=== PATIENT | female | born 1960 | race Caucasian/White ===

== ENCOUNTER 2016-02-16 17:23 | Inpatient (IN) | payer MEDICARE, MEDICAID ==
[~2016-02-16] VITALS: Ht 182.9 cm; Wt 85.0 kg
[~2016-02-16 17:23] MED LIST: ALBU18 IN; ALPR0.5T7 OR; CARI-277 OR; DIA2T PO; FLUT230A2 IN; HYDR7.5T OR; LEV100T PO; LEVO-28 PO; TOPI200T37 OR; VYTORIN; ZOLP10TA OR; [UNRECOGNIZED DRUG - OTHER]
[2016-02-16] MEDS ORDERED: LORazepam 2MG/ML-1ML VIAL ONE (18:19)
[2016-02-16] MEDS ORDERED: LORazepam 2MG/ML-1ML VIAL IV ONE (18:30)
[2016-02-16] MEDS ORDERED: LEVETIRACETAM INJ 1,000 MG in SODIUM CHL 0.9% 100 ML IV ONE (19:00)
[2016-02-16 19:47] LABS: Basophils # (auto) 0.1 uL; Basophils % (auto) 0.6 % (0.0-2.0); Eosinophils # (auto) 0.1 uL; Eosinophils % (auto) 0.6 % (0.0-7.0); Hematocrit 47.5 % (36.0-46.0); Hemoglobin 15.6 g/dL (12.2-16.2); Lymphocytes # (auto) 1.2 uL; Lymphocytes % (auto) 9.6 % (10.0-50.0); Mean Corpuscular Hemoglobin 29.3 pg (28.0-32.0); Mean Corpuscular Hgb Conc. 32.8 g/dL (32.0-36.0); Mean Corpuscular Volume 89.3 fL (80.0-100.0); Mean Platelet Volume 8.1 fL (7.4-10.4); Monocytes # (auto) 0.7 uL; Monocytes % (auto) 5.4 % (0.0-12.0); Neutrophils # (auto) 10.7 uL; Neutrophils % (auto) 83.8 % (37.0-80.0); Platelet Count (auto) 228 10^3/uL (140-450); White Blood Cell 12.8 10^3/uL (4.4-10.8)
[2016-02-16 20:03] LABS: Albumin 3.9 g/dL (3.4-5.0); Alkaline Phosphatase 95 U/L (45-117); Anion Gap 13 (5-15); Aspartate Aminotransferase 14 U/L (15-37); BUN/Creatinine Ratio 11.6; Bilirubin, Total 0.3 mg/dL (0.2-1.0); Blood Urea Nitrogen 15 mg/dL (7-18); Calcium 9.2 mg/dL (8.5-10.1); Carbon Dioxide 19 mmol/L (21-32); Chloride 110 mmol/L (98-107); GFR African American 55 mL/min; GFR Non-African American 46 mL/min; Glucose 126 mg/dL (74-106); Magnesium 2.7 mg/dL (1.6-2.6); Potassium 3.9 mmol/L (3.5-5.1); Sodium 142 mmol/L (136-145); Total Protein 7.4 g/dL (6.4-8.2)
[2016-02-16] MEDS ORDERED: LORazepam 2MG/ML-1ML VIAL IV PRN (22:15)
[2016-02-16] MEDS ORDERED: ALBUTEROL SULF 2.5 MG/0.5ML(0.5%) NEB SOLN NEB PRN (22:15)
[2016-02-16] MEDS ORDERED: NITROGLYCERIN 0.4 MG SL TAB SL PRN (22:15)
[2016-02-16] MEDS ORDERED: ALPRAZolam 0.5 MG TAB PO PRN (22:15)
[2016-02-16] MEDS ORDERED: ACETAMINOPHEN 325 MG TAB PO PRN (22:15)
[2016-02-16] MEDS ORDERED: ONDANSETRON HCL 4 MG/2 ML VIAL IV PRN (22:15)
[2016-02-16] MEDS: SODIUM CHLORIDE 0.9% 1,000 ML IV SCH (22:36)
[2016-02-17 03:53] LABS: Basophils # (auto) 0 uL; Basophils % (auto) 0.4 % (0.0-2.0); Eosinophils # (auto) 0.1 uL; Eosinophils % (auto) 0.7 % (0.0-7.0); Hematocrit 44.1 % (36.0-46.0); Hemoglobin 14.4 g/dL (12.2-16.2); Lymphocytes # (auto) 2.5 uL; Lymphocytes % (auto) 23.5 % (10.0-50.0); Mean Corpuscular Hgb Conc. 32.8 g/dL (32.0-36.0); Mean Corpuscular Volume 88.5 fL (80.0-100.0); Mean Platelet Volume 7.7 fL (7.4-10.4); Monocytes # (auto) 0.8 uL; Monocytes % (auto) 7.4 % (0.0-12.0); Neutrophils # (auto) 7.3 uL; Platelet Count (auto) 216 10^3/uL (140-450); Red Cell Distribution Width 16.1 % (11.6-16.0); White Blood Cell 10.7 10^3/uL (4.4-10.8)
[2016-02-17 04:06] VITALS: BP 129/90
[2016-02-17 04:12] LABS: Albumin 3.5 g/dL (3.4-5.0); BUN/Creatinine Ratio 13.4; Calcium 8.4 mg/dL (8.5-10.1); Potassium 3.4 mmol/L (3.5-5.1)
[2016-02-17] MEDS: OXYCODONE W/ ACETAMINOPHEN 5/325MG TABLET PO PRN ×3 (04:14→20:42)
[2016-02-17 04:15] LABS: Bilirubin, Total 0.4 mg/dL (0.2-1.0); Total Protein 6.7 g/dL (6.4-8.2)
[2016-02-17] MEDS: LEVETIRACETAM 500 MG TAB PO SCH ×2 (09:05→22:24)
[2016-02-17] MEDS: LEVOTHYROXINE SODIUM 50 MCG TAB PO SCH (09:05)
[2016-02-17] MEDS: TOPIRAMATE 100 MG TAB PO SCH ×2 (09:05→22:24)
[2016-02-17] MEDS: FAMOTIDINE 20 MG TAB PO SCH ×2 (09:05→22:24)
[2016-02-17] MEDS: ENOXAPARIN SOD 40 MG/0.4 ML SYRINGE SC SCH (09:06)
[2016-02-17] MEDS: DIAZEPAM 2 MG TAB PO SCH (09:06)
[2016-02-17] MEDS ORDERED: AMIT25TA9 PO (10:15)
[2016-02-17] MEDS: SODIUM CHLORIDE 0.9% 1,000 ML IV SCH (14:47)
[2016-02-17] MEDS ORDERED: POTASSIUM CHL 20 Meq TABLET PO ONE (16:15)
[2016-02-17] MEDS ORDERED: AMITRIPTYLINE HCL 25 MG TAB PO SCH (22:00)
[2016-02-17 22:02] VITALS: BP 100/60
[2016-02-18 05:00] VITALS: BP 94/60
[2016-02-18 05:22] LABS: BUN/Creatinine Ratio 15.6; Calcium 8.1 mg/dL (8.5-10.1); Potassium 3.6 mmol/L (3.5-5.1)
[2016-02-18] MEDS: LEVOTHYROXINE SODIUM 50 MCG TAB PO SCH (06:17)
[2016-02-18 06:31] LABS: Urine Bilirubin Negative (Negative); Urine Blood Negative /uL (Negative); Urine Color Yellow (Yellow); Urine Glucose Normal (Normal); Urine Ketone Negative (Negative); Urine Mucus FEW (None Seen); Urine Nitrite Negative (Negative); Urine RBC 1 /hpf (0 - 4); Urine Squamous Epithelial Cell FEW /hpf (<5); Urine Urobilinogen Normal (Negative)
[2016-02-18 09:00] VITALS: BP_SYST 116; BP_SYST 127; BP_DIAS 72; BP_DIAS 75
[2016-02-18] MEDS: TOPIRAMATE 100 MG TAB PO SCH (09:32)
[2016-02-18] MEDS: FAMOTIDINE 20 MG TAB PO SCH (09:32)
[2016-02-18] MEDS: ENOXAPARIN SOD 40 MG/0.4 ML SYRINGE SC SCH (09:32)
[2016-02-18] MEDS: DIAZEPAM 2 MG TAB PO SCH (09:32)
[2016-02-18] MEDS: SODIUM CHLORIDE 0.9% 1,000 ML IV SCH (09:32)
[2016-02-18] MEDS: LEVETIRACETAM 500 MG TAB PO SCH (09:51)
[2016-02-18] MEDS: OXYCODONE W/ ACETAMINOPHEN 5/325MG TABLET PO PRN ×2 (09:57→19:01)
[2016-02-18] MEDS ORDERED: ATO40T PO (11:36)
[2016-02-18] MEDS ORDERED: POTASSIUM CHL 20 Meq TABLET PO ONE (11:45)
[2016-02-18 13:00] VITALS: BP 116/75
[2016-02-18 16:44] VITALS: BP 116/72
[2016-02-18 21:39] VITALS: BP 121/80
== END 2016-02-18 21:25 | disposition home or self-care (01) | DRG 100 ==
LOC: EDUNIT# 17:23 → EDBD 17:23 → ER 17:28 → TELE 17:29 → TELE-WESTW 02-17 17:51
PROVIDERS: ADMIT Internal Medicine; ATTEND Internal Medicine
DX: G40.409 Other generalized epilepsy and epileptic syndromes, not intractable, without status epilepticus (principal); N17.0 Acute kidney failure with tubular necrosis; G93.41 Metabolic encephalopathy; E03.9 Hypothyroidism, unspecified; E78.5 Hyperlipidemia, unspecified; E86.0 Dehydration; I25.10 Atherosclerotic heart disease of native coronary artery without angina pectoris; I50.9 Heart failure, unspecified; F41.9 Anxiety disorder, unspecified; J44.9 Chronic obstructive pulmonary disease, unspecified; J45.909 Unspecified asthma, uncomplicated; M19.90 Unspecified osteoarthritis, unspecified site; E87.6 Hypokalemia; G43.909 Migraine, unspecified, not intractable, without status migrainosus; F32.9 Major depressive disorder, single episode, unspecified; Z80.41 Family history of malignant neoplasm of ovary; Z82.49 Family history of ischemic heart disease and other diseases of the circulatory system; Z83.3 Family history of diabetes mellitus; Z90.49 Acquired absence of other specified parts of digestive tract; Z90.710 Acquired absence of both cervix and uterus; Z88.0 Allergy status to penicillin; Z88.1 Allergy status to other antibiotic agents; Z88.5 Allergy status to narcotic agent
CPT/HCPCS: 36415; 70450; 80048; 80053; 80061; 80320; 81001; 83735; 84443; 85025; 93005; 94761; 96365; 96375

== ENCOUNTER 2017-11-24 11:42 | Inpatient (IN) | payer MEDICARE, MEDICAID ==
[~2017-11-24] VITALS: Ht 182.9 cm; Wt 93.5 kg
[~2017-11-24 11:42] MED LIST changes: +AMIT25TA9 PO; +ATO40T PO; -LEVO-28 PO; -VYTORIN
[2017-11-24] MEDS: CARISOPRODOL 350 MG TAB PO SCH ×3 (12:00→21:29)
[2017-11-24] MEDS ORDERED: SODIUM CHLORIDE 0.9% 1,000 ML IV ONE (12:05)
[2017-11-24] MEDS ORDERED: methylPREDNISolone SOD SUCC 125 MG/2 ML VL IV ONE (12:15)
[2017-11-24] MEDS ORDERED: IPRATROPIUM BROM 0.5 MG/2.5ML INH SOL HHN ONE (12:15)
[2017-11-24] MEDS ORDERED: ALBUTEROL SULF 2.5 MG/0.5ML(0.5%) NEB SOLN HHN ONE (12:15)
[2017-11-24 13:28] LABS: Basophils # (auto) 0 uL; Basophils % (auto) 0.5 % (0.0-2.0); Eosinophils # (auto) 0.3 uL; Eosinophils % (auto) 4.6 % (0.0-7.0); Hematocrit 42.6 % (36.0-46.0); Hemoglobin 14.4 g/dL (12.2-16.2); Lymphocytes # (auto) 1.7 uL; Lymphocytes % (auto) 27.3 % (10.0-50.0); Mean Corpuscular Hemoglobin 29.8 pg (28.0-32.0); Mean Corpuscular Hgb Conc. 33.8 g/dL (32.0-36.0); Mean Corpuscular Volume 88.2 fL (80.0-100.0); Monocytes # (auto) 0.6 uL; Monocytes % (auto) 9.7 % (0.0-12.0); Neutrophils # (auto) 3.6 uL; Neutrophils % (auto) 57.9 % (37.0-80.0); Nucleated Red Blood Cells % 0.1 %; Platelet Count (auto) 146 10^3/uL (140-450); Red Blood Cells 4.83 10^6/uL (4.0-5.20); Red Cell Distribution Width 14.2 % (11.8-14.3); White Blood Cell 6.2 10^3/uL (4.4-10.8)
[2017-11-24] MEDS ORDERED: SODIUM CHLORIDE 0.9% 1,000 ML IV SCH (13:40)
[2017-11-24] MEDS ORDERED: ONDANSETRON HCL 4 MG/2 ML VIAL IV PRN (13:45)
[2017-11-24] MEDS ORDERED: LACTULOSE 20Gm/30ML SOLN PO PRN (13:45)
[2017-11-24] MEDS ORDERED: LEVOFLOXACIN 500 MG TAB PO ONE (13:45)
[2017-11-24] MEDS ORDERED: ALBUTEROL SULF 2.5 MG/0.5ML(0.5%) NEB SOLN NEB PRN (13:45)
[2017-11-24] MEDS ORDERED: NITROGLYCERIN 0.4 MG SL TAB SL PRN (13:45)
[2017-11-24 13:48] LABS: Albumin 3.5 g/dL (3.4-5.0); Anion Gap 7 (5-15); Aspartate Aminotransferase 15 U/L (15-37); BUN/Creatinine Ratio 10.1; Blood Urea Nitrogen 11 mg/dL (7-18); Calcium 8.2 mg/dL (8.5-10.1); Carbon Dioxide 21 mmol/L (21-32); Chloride 114 mmol/L (98-107); GFR African American 67 mL/min; GFR Non-African American 55 mL/min; Glucose 105 mg/dL (74-106); Magnesium 2.2 mg/dL (1.6-2.6); Potassium 3.9 mmol/L (3.5-5.1); Sodium 142 mmol/L (136-145)
[2017-11-24 13:52] LABS: Alanine Aminotransferase 18 U/L (13-56); Alkaline Phosphatase 110 U/L (45-117); Bilirubin, Total 0.3 mg/dL (0.2-1.0); Total Protein 6.9 g/dL (6.4-8.2)
[2017-11-24] MEDS: TOPIRAMATE 100 MG TAB PO SCH ×2 (14:00→21:29)
[2017-11-24] MEDS: ALPRAZolam 0.5 MG TAB PO SCH ×2 (14:00→21:29)
[2017-11-24] MEDS ORDERED: CARISOPRODOL 350 MG TAB PO ONE (14:00)
[2017-11-24] MEDS ORDERED: PANTOPRAZOLE 40 MG TAB PO ONE (14:00)
[2017-11-24] MEDS ORDERED: ENOXAPARIN SOD 40 MG/0.4 ML SYRINGE SC ONE (14:00)
[2017-11-24] MEDS ORDERED: methylPREDNISolone SOD SUCC 40 MG/ML VL IV ONE (14:00)
[2017-11-24 16:14] VITALS: BP 98/74
[2017-11-24 17:00] VITALS: BP 122/79
[2017-11-24] MEDS: methylPREDNISolone SOD SUCC 40 MG/ML VL IV SCH ×2 (18:09→23:29)
[2017-11-24] MEDS: SODIUM CHLORIDE 0.9% 1,000 ML IV SCH (18:50)
[2017-11-24] MEDS ORDERED: ONDA-143 PO (18:52)
[2017-11-24] MEDS ORDERED: DEXL60CA3 PO (18:52)
[2017-11-24] MEDS ORDERED: ASPI-231 PO (18:52)
[2017-11-24] MEDS ORDERED: LORA-654 PO (18:52)
[2017-11-24] MEDS ORDERED: PERCOT PO (18:52)
[2017-11-24] MEDS ORDERED: TRAM50TA2 PO (18:52)
[2017-11-24] MEDS ORDERED: PROM1SYP4 PO (18:52)
[2017-11-24] MEDS: BUDESONIDE (INHALATION) 0.5 MG/2 ML NEB NEB SCH (19:20)
[2017-11-24] MEDS: IPRATROPIUM BROM 0.5 MG/2.5ML INH SOL NEB SCH (19:20)
[2017-11-24] MEDS: ALBUTEROL SULF 2.5 MG/0.5ML(0.5%) NEB SOLN NEB SCH (19:20)
[2017-11-24] MEDS: ATORVASTATIN 20 MG TAB PO SCH (21:29)
[2017-11-24] MEDS: AMITRIPTYLINE HCL 25 MG TAB PO SCH (21:29)
[2017-11-24 22:00] VITALS: BP 106/72
[2017-11-24] MEDS ORDERED: FLUTICASONE PROPIONATE IN SCH (22:00)
[2017-11-24] MEDS ORDERED: SALMETEROL IN SCH (22:00)
[2017-11-24] MEDS ORDERED: HYDROcodone-ACET 5/325MG TAB PO ONE (22:30)
[2017-11-24] MEDS ORDERED: PROMETHAZINE W/CODEINE 5 ML ORAL SYRUP PO ONE (22:30)
[2017-11-24] MEDS: ZOLPIDEM TARTRATE 5 MG TAB PO SCH (23:29)
[2017-11-25] MEDS: ALBUTEROL SULF 2.5 MG/0.5ML(0.5%) NEB SOLN NEB SCH ×4 (00:47→18:59)
[2017-11-25] MEDS: IPRATROPIUM BROM 0.5 MG/2.5ML INH SOL NEB SCH ×4 (00:47→18:59)
[2017-11-25 04:42] VITALS: BP 89/52
[2017-11-25 05:32] VITALS: BP 102/65
[2017-11-25] MEDS: ALPRAZolam 0.5 MG TAB PO SCH ×3 (06:00→21:31)
[2017-11-25] MEDS: CARISOPRODOL 350 MG TAB PO SCH ×4 (06:00→21:31)
[2017-11-25] MEDS: methylPREDNISolone SOD SUCC 40 MG/ML VL IV SCH ×3 (06:09→21:30)
[2017-11-25] MEDS: LEVOTHYROXINE SODIUM 100 MCG TAB PO SCH (06:25)
[2017-11-25 09:21] LABS: Urine Bacteria FEW /hpf (None Seen); Urine Blood Negative /uL (Negative); Urine Mucus FEW (None Seen); Urine WBC 1 /hpf (0 - 5)
[2017-11-25] MEDS ORDERED: LEVOFLOXACIN 500 MG TAB PO SCH (10:00)
[2017-11-25] MEDS: SODIUM CHLORIDE 0.9% 1,000 ML IV SCH ×2 (10:23→21:30)
[2017-11-25] MEDS: TOPIRAMATE 100 MG TAB PO SCH ×2 (10:23→21:30)
[2017-11-25] MEDS: PANTOPRAZOLE 40 MG TAB PO SCH (10:23)
[2017-11-25] MEDS: DIAZEPAM 2 MG TAB PO SCH (10:23)
[2017-11-25] MEDS: ENOXAPARIN SOD 40 MG/0.4 ML SYRINGE SC SCH (10:24)
[2017-11-25] MEDS: BUDESONIDE (INHALATION) 0.5 MG/2 ML NEB NEB SCH ×2 (11:54→18:58)
[2017-11-25 12:56] VITALS: BP 134/82
[2017-11-25] MEDS: SULFAMETHOX W/TRIMETH(800/160MG) DS TAB PO SCH ×2 (13:00→21:31)
[2017-11-25 17:00] VITALS: BP 119/65
[2017-11-25 21:30] VITALS: BP 113/75
[2017-11-25] MEDS: AMITRIPTYLINE HCL 25 MG TAB PO SCH (21:30)
[2017-11-25] MEDS: ATORVASTATIN 20 MG TAB PO SCH (21:31)
[2017-11-25] MEDS: PROMETHAZINE W/CODEINE 5 ML ORAL SYRUP PO PRN (21:41)
[2017-11-25] MEDS: ACETYLCYSTEINE ORAL for CIN 20%(200MG/ML) 4ML PO SCH (21:44)
[2017-11-25] MEDS: ZOLPIDEM TARTRATE 5 MG TAB PO SCH (23:10)
[2017-11-26] MEDS: IPRATROPIUM BROM 0.5 MG/2.5ML INH SOL NEB SCH ×4 (00:30→18:50)
[2017-11-26] MEDS: ALBUTEROL SULF 2.5 MG/0.5ML(0.5%) NEB SOLN NEB SCH ×4 (00:30→18:50)
[2017-11-26] MEDS: SODIUM CHLORIDE 0.9% 1,000 ML IV SCH ×2 (03:10→21:47)
[2017-11-26 05:00] VITALS: BP 103/66
[2017-11-26 05:51] LABS: Basophils # (auto) 0 uL; Basophils % (auto) 0.1 % (0.0-2.0); Eosinophils # (auto) 0 uL; Hematocrit 38.4 % (36.0-46.0); Lymphocytes # (auto) 1.2 uL; Mean Corpuscular Hgb Conc. 33.9 g/dL (32.0-36.0); Mean Corpuscular Volume 88.4 fL (80.0-100.0); Monocytes # (auto) 0.3 uL; Monocytes % (auto) 3.7 % (0.0-12.0); Neutrophils # (auto) 7.6 uL; Neutrophils % (auto) 83.2 % (37.0-80.0); Nucleated Red Blood Cells % 0.1 %; Platelet Count (auto) 162 10^3/uL (140-450); Red Blood Cells 4.34 10^6/uL (4.0-5.20); Red Cell Distribution Width 14.2 % (11.8-14.3); White Blood Cell 9.2 10^3/uL (4.4-10.8)
[2017-11-26] MEDS: ALPRAZolam 0.5 MG TAB PO SCH ×3 (06:00→21:38)
[2017-11-26] MEDS: CARISOPRODOL 350 MG TAB PO SCH ×4 (06:00→21:38)
[2017-11-26 06:05] LABS: Potassium 4.3 mmol/L (3.5-5.1)
[2017-11-26 06:10] LABS: BUN/Creatinine Ratio 16.7; Calcium 8.2 mg/dL (8.5-10.1)
[2017-11-26] MEDS: LEVOTHYROXINE SODIUM 100 MCG TAB PO SCH (06:24)
[2017-11-26 08:59] VITALS: BP 120/78
[2017-11-26] MEDS: SULFAMETHOX W/TRIMETH(800/160MG) DS TAB PO SCH ×2 (09:42→21:37)
[2017-11-26] MEDS: methylPREDNISolone SOD SUCC 40 MG/ML VL IV SCH ×2 (09:42→21:37)
[2017-11-26] MEDS: ACETYLCYSTEINE ORAL for CIN 20%(200MG/ML) 4ML PO SCH ×2 (09:44→21:46)
[2017-11-26] MEDS: PANTOPRAZOLE 40 MG TAB PO SCH (09:44)
[2017-11-26] MEDS: DIAZEPAM 2 MG TAB PO SCH (09:45)
[2017-11-26] MEDS: ENOXAPARIN SOD 40 MG/0.4 ML SYRINGE SC SCH (09:45)
[2017-11-26] MEDS: TOPIRAMATE 100 MG TAB PO SCH ×2 (09:45→21:38)
[2017-11-26] MEDS: BUDESONIDE (INHALATION) 0.5 MG/2 ML NEB NEB SCH ×2 (11:25→18:50)
[2017-11-26] MEDS: PROMETHAZINE W/CODEINE 5 ML ORAL SYRUP PO PRN ×2 (12:34→21:45)
[2017-11-26 13:00] VITALS: BP 117/78
[2017-11-26 17:00] VITALS: BP_SYST 102; BP_SYST 133; BP_DIAS 56; BP_DIAS 75
[2017-11-26] MEDS: ATORVASTATIN 20 MG TAB PO SCH (21:37)
[2017-11-26] MEDS: AMITRIPTYLINE HCL 25 MG TAB PO SCH (21:38)
[2017-11-26 22:20] VITALS: BP 112/77
[2017-11-26] MEDS: ZOLPIDEM TARTRATE 5 MG TAB PO SCH (23:15)
[2017-11-27 05:00] VITALS: BP_SYST 100; BP_SYST 112; BP_DIAS 64; BP_DIAS 77
[2017-11-27 05:43] LABS: Basophils # (auto) 0 uL; Basophils % (auto) 0.1 % (0.0-2.0); Eosinophils # (auto) 0 uL; Hematocrit 39.6 % (36.0-46.0); Hemoglobin 13.6 g/dL (12.2-16.2); Lymphocytes # (auto) 1.3 uL; Lymphocytes % (auto) 17.5 % (10.0-50.0); Mean Corpuscular Hemoglobin 30.2 pg (28.0-32.0); Mean Corpuscular Hgb Conc. 34.3 g/dL (32.0-36.0); Monocytes # (auto) 0.2 uL; Monocytes % (auto) 3.2 % (0.0-12.0); Neutrophils % (auto) 79.2 % (37.0-80.0); Nucleated Red Blood Cells % 0.1 %; Platelet Count (auto) 168 10^3/uL (140-450); Red Cell Distribution Width 14.3 % (11.8-14.3); White Blood Cell 7.6 10^3/uL (4.4-10.8)
[2017-11-27] MEDS: IPRATROPIUM BROM 0.5 MG/2.5ML INH SOL NEB SCH ×3 (05:47→13:00)
[2017-11-27] MEDS: ALBUTEROL SULF 2.5 MG/0.5ML(0.5%) NEB SOLN NEB SCH ×3 (05:48→13:00)
[2017-11-27] MEDS: BUDESONIDE (INHALATION) 0.5 MG/2 ML NEB NEB SCH (05:48)
[2017-11-27] MEDS: CARISOPRODOL 350 MG TAB PO SCH ×2 (06:00→12:00)
[2017-11-27] MEDS: ALPRAZolam 0.5 MG TAB PO SCH (06:00)
[2017-11-27 06:08] LABS: Calcium 8.1 mg/dL (8.5-10.1); Potassium 4.4 mmol/L (3.5-5.1)
[2017-11-27] MEDS: LEVOTHYROXINE SODIUM 100 MCG TAB PO SCH (06:32)
[2017-11-27 09:00] VITALS: BP 137/82
[2017-11-27] MEDS: DIAZEPAM 2 MG TAB PO SCH (10:00)
[2017-11-27] MEDS: ENOXAPARIN SOD 40 MG/0.4 ML SYRINGE SC SCH (10:00)
[2017-11-27] MEDS: TOPIRAMATE 100 MG TAB PO SCH (10:00)
[2017-11-27] MEDS: ACETYLCYSTEINE ORAL for CIN 20%(200MG/ML) 4ML PO SCH (10:00)
[2017-11-27] MEDS: SULFAMETHOX W/TRIMETH(800/160MG) DS TAB PO SCH (10:00)
[2017-11-27] MEDS: PANTOPRAZOLE 40 MG TAB PO SCH (10:00)
[2017-11-27] MEDS: methylPREDNISolone SOD SUCC 40 MG/ML VL IV SCH (10:00)
[2017-11-27 12:07] VITALS: BP 137/82
== END 2017-11-27 13:10 | disposition home or self-care (01) | DRG 191 ==
LOC: ER 11:42 → TELE-WESTW 11:43
PROVIDERS: ADMIT Internal Medicine; ATTEND Internal Medicine
DX: J44.1 Chronic obstructive pulmonary disease with (acute) exacerbation (principal); J45.901 Unspecified asthma with (acute) exacerbation; E87.8 Other disorders of electrolyte and fluid balance, not elsewhere classified; G43.909 Migraine, unspecified, not intractable, without status migrainosus; E03.9 Hypothyroidism, unspecified; M19.90 Unspecified osteoarthritis, unspecified site; I25.10 Atherosclerotic heart disease of native coronary artery without angina pectoris; F32.9 Major depressive disorder, single episode, unspecified; F17.200 Nicotine dependence, unspecified, uncomplicated; E78.5 Hyperlipidemia, unspecified; I50.9 Heart failure, unspecified; Z83.3 Family history of diabetes mellitus; Z82.49 Family history of ischemic heart disease and other diseases of the circulatory system; Z90.710 Acquired absence of both cervix and uterus; Z90.49 Acquired absence of other specified parts of digestive tract; Z81.1 Family history of alcohol abuse and dependence; Z80.41 Family history of malignant neoplasm of ovary; Z88.1 Allergy status to other antibiotic agents; Z88.0 Allergy status to penicillin; Z88.6 Allergy status to analgesic agent; Z79.899 Other long term (current) drug therapy
CPT/HCPCS: 36415; 71045; 80048; 80053; 81001; 83735; 84484; 85025; 87804; 93005; 94640; 94644; 96361; 96374; 96375

== ENCOUNTER 2021-02-14 15:09 | Inpatient (IN) | payer MEDICARE, MEDICAID ==
[~2021-02-14] VITALS: Ht 180.3 cm; Wt 74.9 kg
[~2021-02-14 15:09] MED LIST changes: -ALBU18 IN; +ALBU18 INH; -ALPR0.5T7 OR; +AMIT25TA12 PO; -AMIT25TA9 PO; +ASPI1TAB20 PO; -CARI-277 OR; +CARI-277 PO; +DEXL60CA4 PO; -DIA2T PO; -HYDR7.5T OR; +LORA0.5T20 PO; +ONDA-143 PO; +PERCOT PO; +PROM2SYP2 PO; +TIOTCAP IN; -TOPI200T37 OR; +TOPI200T37 PO; +TRAM50TA2 PO
[2021-02-14] MEDS ORDERED: methylPREDNISolone SOD SUCC 125 MG/2 ML VL IV ONE (16:00)
[2021-02-14] MEDS ORDERED: cefTRIAXone 1GM/50ML D5W 50 ML IV ONE (16:00)
[2021-02-14] MEDS: AZITHROMYCIN 500MG/ 250ML 250 ML IV ONE (18:06)
[2021-02-14 18:54] LABS: Basophils # (auto) 0 10 ^3/uL (0-0.2); Basophils % (auto) 0.5 % (0.0-2.0); Eosinophils # (auto) 0.1 10 ^3/uL (0-0.8); Eosinophils % (auto) 1.4 % (0.0-7.0); Hematocrit 45.9 % (36.0-46.0); Hemoglobin 15.2 g/dL (12.2-16.2); Lymphocytes # (auto) 1.1 10 ^3/uL (0.4-5.4); Lymphocytes % (auto) 11.7 % (10.0-50.0); Mean Corpuscular Hemoglobin 28.6 pg (28.0-32.0); Mean Corpuscular Volume 86.4 fL (80.0-100.0); Monocytes # (auto) 0.2 10 ^3/uL (0-1.3); Monocytes % (auto) 2.4 % (0.0-12.0); Neutrophils # (auto) 7.6 10 ^3/uL (1.6-8.6); Red Blood Cells 5.31 10^6/uL (4.0-5.20); Red Cell Distribution Width 14.5 % (11.8-14.3)
[2021-02-14 19:11] LABS: INR 0.97 (0.9-1.15); Partial Thromboplastin Time 25.3 sec (23.6-33.0)
[2021-02-14 19:17] LABS: Calcium 9.1 mg/dL (8.5-10.1); Potassium 4.1 mmol/L (3.5-5.1)
[2021-02-14 19:24] LABS: BUN/Creatinine Ratio 17.9; Bilirubin, Total 0.3 mg/dL (0.2-1.0); CRP High Sensitivity 0.15 mg/dL (< 0.3); Total Protein 7.4 g/dL (6.4-8.2)
[2021-02-15] MEDS ORDERED: TEMAZEPAM 15 MG CAP PO PRN (00:30)
[2021-02-15] MEDS ORDERED: ACETAMINOPHEN 325 MG TAB PO PRN (00:30)
[2021-02-15] MEDS: HYDROcodone-ACET 5/325MG TAB PO PRN ×3 (01:44→18:36)
[2021-02-15 02:43] LABS: Urine Bacteria NONE SEEN /hpf (None Seen); Urine Blood Negative /uL (Negative); Urine Mucus FEW (None Seen); Urine Specific Gravity 1.019 (1.001-1.035); Urine WBC 1 /hpf (0 - 5)
[2021-02-15] MEDS: AZITHROMYCIN 500MG/ 250ML 250 ML IV ONE (03:42)
[2021-02-15] MEDS ORDERED: ALBUTEROL SULF HFA 90MCG INH 200DOSE IN PRN (06:00)
[2021-02-15] MEDS ORDERED: IPRATROPIUM BROM 0.5 MG/2.5ML INH SOL NEB SCH (06:00)
[2021-02-15] MEDS ORDERED: ALBUTEROL SULF 2.5 MG/0.5ML(0.5%) NEB SOLN NEB SCH (06:00)
[2021-02-15] MEDS ORDERED: ACETAMINOPHEN 500 MG TAB PO PRN (06:30)
[2021-02-15] MEDS ORDERED: LEVOTHYROXINE SODIUM 50 MCG TAB PO SCH ×2 (07:00→22:00)
[2021-02-15] MEDS ORDERED: ALBUTEROL SULF 2.5 MG/0.5ML(0.5%) NEB SOLN NEB ONE (09:00)
[2021-02-15] MEDS: levoFLOXacin 500MG 100 ML IV SCH (09:43)
[2021-02-15] MEDS: PANTOPRAZOLE 40 MG TAB PO SCH (09:43)
[2021-02-15] MEDS: ASCORBIC ACID 1,000 MG TAB PO SCH (09:44)
[2021-02-15] MEDS: CHOLECALCIFEROL (VITD3) 2,000 UNIT CAP/TAB PO SCH (09:44)
[2021-02-15] MEDS: ENOXAPARIN SOD 40 MG/0.4 ML SYRINGE SC SCH (09:44)
[2021-02-15] MEDS: TOPIRAMATE 100 MG TAB PO SCH ×2 (09:45→21:38)
[2021-02-15] MEDS ORDERED: methylPREDNISolone SOD SUCC 125 MG/2 ML VL IV SCH (10:00)
[2021-02-15] MEDS ORDERED: DexAMETHasone SOD PHOS 10MG/1ML VIAL INJ IV SCH (10:00)
[2021-02-15] MEDS ORDERED: REMDESIVIR PER PHARMACY 0 ML IV SCH (12:15)
[2021-02-15] MEDS ORDERED: FUROSEMIDE 20 MG/2 ML VIAL IV ONE (13:30)
[2021-02-15] MEDS: ONDANSETRON HCL 4 MG/2 ML VIAL IV PRN (14:11)
[2021-02-15] MEDS ORDERED: REMDESIVIR 200 MG in NS 210ml LOADING DOSE ADULT IV ONE (15:00)
[2021-02-15 16:59] VITALS: BP 94/54
[2021-02-15 17:00] VITALS: BP 98/57
[2021-02-15] MEDS: ALBUTEROL SULF HFA 90MCG INH 200DOSE IN PRN (20:04)
[2021-02-15] MEDS: BUDESONIDE (INHALATION) 0.5 MG/2 ML NEB NEB SCH (20:05)
[2021-02-15] MEDS: AMITRIPTYLINE HCL 10 MG TAB PO SCH (21:38)
[2021-02-15] MEDS: ATORVASTATIN 20 MG TAB PO SCH (21:38)
[2021-02-15] MEDS: methylPREDNISolone SOD SUCC 40 MG/ML VL IV SCH (21:56)
[2021-02-15 22:00] VITALS: BP 106/69
[2021-02-15] MEDS ORDERED: ACETYLCYSTEINE 20%(200MG/ML) SOL 4ML NEB SCH (22:00)
[2021-02-15] MEDS ORDERED: TIOT1AER2 INH (23:40)
[2021-02-15] MEDS ORDERED: ROSU1TAB14 PO (23:40)
[2021-02-15] MEDS ORDERED: BUDE1AER4 IN (23:40)
[2021-02-15] MEDS ORDERED: MONT-8 PO (23:40)
[2021-02-15] MEDS ORDERED: LEVO112T4 PO (23:40)
[2021-02-16] VITALS (7 sets, daily range): BP systolic 75–103; BP diastolic 49–78
[2021-02-16 06:03] LABS: Basophils # (auto) 0 10 ^3/uL (0-0.2); Basophils % (auto) 0.5 % (0.0-2.0); Eosinophils # (auto) 0 10 ^3/uL (0-0.8); Hematocrit 40.6 % (36.0-46.0); Hemoglobin 13.7 g/dL (12.2-16.2); Lymphocytes # (auto) 1.2 10 ^3/uL (0.4-5.4); Lymphocytes % (auto) 12.3 % (10.0-50.0); Mean Corpuscular Hemoglobin 28.7 pg (28.0-32.0); Mean Corpuscular Hgb Conc. 33.7 g/dL (32.0-36.0); Mean Corpuscular Volume 85.3 fL (80.0-100.0); Monocytes # (auto) 0.5 10 ^3/uL (0-1.3); Monocytes % (auto) 4.8 % (0.0-12.0); Neutrophils # (auto) 8.4 10 ^3/uL (1.6-8.6); Neutrophils % (auto) 82.4 % (37.0-80.0); Red Blood Cells 4.76 10^6/uL (4.0-5.20); Red Cell Distribution Width 14.2 % (11.8-14.3); White Blood Cell 10.1 10^3/uL (4.4-10.8)
[2021-02-16 06:36] LABS: Albumin 3.3 g/dL (3.4-5.0); Calcium 8.7 mg/dL (8.5-10.1)
[2021-02-16 06:38] LABS: BUN/Creatinine Ratio 25.3
[2021-02-16 06:40] LABS: Bilirubin, Total 0.2 mg/dL (0.2-1.0)
[2021-02-16] MEDS: ALBUTEROL SULF HFA 90MCG INH 200DOSE IN PRN (07:52)
[2021-02-16] MEDS: BUDESONIDE (INHALATION) 0.5 MG/2 ML NEB NEB SCH ×2 (07:52→20:03)
[2021-02-16] MEDS: methylPREDNISolone SOD SUCC 40 MG/ML VL IV SCH ×2 (11:45→21:22)
[2021-02-16] MEDS: levoFLOXacin 500MG 100 ML IV SCH (11:45)
[2021-02-16] MEDS: FUROSEMIDE 20 MG/2 ML VIAL IV SCH (11:46)
[2021-02-16] MEDS: ENOXAPARIN SOD 40 MG/0.4 ML SYRINGE SC SCH (11:47)
[2021-02-16] MEDS: ASCORBIC ACID 1,000 MG TAB PO SCH (11:47)
[2021-02-16] MEDS: CHOLECALCIFEROL (VITD3) 2,000 UNIT CAP/TAB PO SCH (11:47)
[2021-02-16] MEDS: TOPIRAMATE 100 MG TAB PO SCH ×2 (11:47→21:21)
[2021-02-16] MEDS: PANTOPRAZOLE 40 MG TAB PO SCH (11:47)
[2021-02-16] MEDS ORDERED: ACETYLCYSTEINE 10 %(100MG/ML) SOL 4ML NEB SCH (12:00)
[2021-02-16] MEDS: ONDANSETRON HCL 4 MG/2 ML VIAL IV PRN (12:32)
[2021-02-16] MEDS: HYDROcodone-ACET 5/325MG TAB PO PRN (12:34)
[2021-02-16] MEDS: REMDESIVIR 100mg 100 MG in SODIUM CHL 0.9% 230 ML IV SCH (15:54)
[2021-02-16] MEDS: ALBUTEROL SULF 2.5 MG/0.5ML(0.5%) NEB SOLN NEB PRN (20:03)
[2021-02-16] MEDS: ACETYLCYSTEINE 10 %(100MG/ML) SOL 4ML NEB SCH (20:04)
[2021-02-16] MEDS: ATORVASTATIN 20 MG TAB PO SCH (21:21)
[2021-02-16] MEDS: AMITRIPTYLINE HCL 10 MG TAB PO SCH (22:00)
[2021-02-17 05:00] VITALS: BP 98/62
[2021-02-17] MEDS: ONDANSETRON HCL 4 MG/2 ML VIAL IV PRN (08:36)
[2021-02-17 08:41] LABS: Potassium 3.9 mmol/L (3.5-5.1)
[2021-02-17 08:51] LABS: Albumin 3.4 g/dL (3.4-5.0); BUN/Creatinine Ratio 33.8; Bilirubin, Total 0.3 mg/dL (0.2-1.0); Calcium 8.8 mg/dL (8.5-10.1)
[2021-02-17 09:00] VITALS: BP 106/72
[2021-02-17] MEDS: ALBUTEROL SULF 2.5 MG/0.5ML(0.5%) NEB SOLN NEB PRN ×2 (09:44→20:51)
[2021-02-17] MEDS: BUDESONIDE (INHALATION) 0.5 MG/2 ML NEB NEB SCH ×2 (09:44→20:51)
[2021-02-17] MEDS: ACETYLCYSTEINE 10 %(100MG/ML) SOL 4ML NEB SCH ×2 (09:44→20:51)
[2021-02-17] MEDS: TOPIRAMATE 100 MG TAB PO SCH ×2 (11:27→21:42)
[2021-02-17] MEDS: ASCORBIC ACID 1,000 MG TAB PO SCH (11:27)
[2021-02-17] MEDS: CHOLECALCIFEROL (VITD3) 2,000 UNIT CAP/TAB PO SCH (11:27)
[2021-02-17] MEDS: PANTOPRAZOLE 40 MG TAB PO SCH (11:27)
[2021-02-17] MEDS: methylPREDNISolone SOD SUCC 40 MG/ML VL IV SCH ×2 (11:28→21:42)
[2021-02-17] MEDS: ENOXAPARIN SOD 40 MG/0.4 ML SYRINGE SC SCH (11:28)
[2021-02-17] MEDS: levoFLOXacin 500MG 100 ML IV SCH (11:29)
[2021-02-17] MEDS: HYDROcodone-ACET 5/325MG TAB PO PRN (11:29)
[2021-02-17] MEDS: FUROSEMIDE 20 MG/2 ML VIAL IV SCH (11:29)
[2021-02-17 13:00] VITALS: BP 101/75
[2021-02-17] MEDS ORDERED: LORazepam 0.5 MG TAB PO PRN (14:00)
[2021-02-17] MEDS: REMDESIVIR 100mg 100 MG in SODIUM CHL 0.9% 230 ML IV SCH (15:48)
[2021-02-17] MEDS: ONDANSETRON ODT 4 MG TAB PO PRN (16:18)
[2021-02-17] MEDS: OXYCODONE W/ ACETAMINOPHEN 5/325MG TABLET PO PRN (16:20)
[2021-02-17 17:00] VITALS: BP 100/61
[2021-02-17] MEDS: ATORVASTATIN 20 MG TAB PO SCH (21:42)
[2021-02-17 22:01] VITALS: BP 95/56
[2021-02-18 05:00] VITALS: BP 95/55
[2021-02-18] MEDS ORDERED: LEVOTHYROXINE SODIUM 112 MCG TAB PO SCH (07:00)
[2021-02-18 07:07] LABS: Albumin 3.3 g/dL (3.4-5.0); Calcium 9.2 mg/dL (8.5-10.1)
[2021-02-18 07:14] LABS: BUN/Creatinine Ratio 36.5; Bilirubin, Total 0.3 mg/dL (0.2-1.0)
[2021-02-18 09:00] VITALS: BP 134/71
[2021-02-18] MEDS: ONDANSETRON ODT 4 MG TAB PO PRN ×2 (09:50→18:28)
[2021-02-18] MEDS: OXYCODONE W/ ACETAMINOPHEN 5/325MG TABLET PO PRN (09:50)
[2021-02-18] MEDS: PANTOPRAZOLE 40 MG TAB PO SCH (09:51)
[2021-02-18] MEDS: levoFLOXacin 500MG 100 ML IV SCH (09:51)
[2021-02-18] MEDS: methylPREDNISolone SOD SUCC 40 MG/ML VL IV SCH ×2 (09:51→21:55)
[2021-02-18] MEDS: TOPIRAMATE 100 MG TAB PO SCH ×2 (09:51→21:55)
[2021-02-18] MEDS: FUROSEMIDE 20 MG/2 ML VIAL IV SCH (09:51)
[2021-02-18] MEDS: ASCORBIC ACID 1,000 MG TAB PO SCH (09:52)
[2021-02-18] MEDS: ENOXAPARIN SOD 40 MG/0.4 ML SYRINGE SC SCH (09:52)
[2021-02-18] MEDS: CHOLECALCIFEROL (VITD3) 2,000 UNIT CAP/TAB PO SCH (09:52)
[2021-02-18 13:00] VITALS: BP 112/65
[2021-02-18] MEDS: BUDESONIDE (INHALATION) 0.5 MG/2 ML NEB NEB SCH ×2 (13:20→19:45)
[2021-02-18] MEDS: ACETYLCYSTEINE 10 %(100MG/ML) SOL 4ML NEB SCH ×2 (13:20→19:45)
[2021-02-18] MEDS: ALBUTEROL SULF 2.5 MG/0.5ML(0.5%) NEB SOLN NEB PRN ×2 (13:20→19:45)
[2021-02-18] MEDS: REMDESIVIR 100mg 100 MG in SODIUM CHL 0.9% 230 ML IV SCH (15:00)
[2021-02-18 17:00] VITALS: BP 112/80
[2021-02-18] MEDS: ATORVASTATIN 20 MG TAB PO SCH (21:55)
[2021-02-18 22:00] VITALS: BP 125/82
[2021-02-19 05:00] VITALS: BP 95/61
[2021-02-19] MEDS: ONDANSETRON ODT 4 MG TAB PO PRN ×2 (06:36→16:05)
[2021-02-19 08:03] LABS: Basophils # (auto) 0 10 ^3/uL (0-0.2); Basophils % (auto) 0.3 % (0.0-2.0); Eosinophils # (auto) 0 10 ^3/uL (0-0.8); Hematocrit 43.6 % (36.0-46.0); Hemoglobin 14.5 g/dL (12.2-16.2); Lymphocytes # (auto) 1.6 10 ^3/uL (0.4-5.4); Lymphocytes % (auto) 22.5 % (10.0-50.0); Mean Corpuscular Hemoglobin 28.4 pg (28.0-32.0); Mean Corpuscular Hgb Conc. 33.2 g/dL (32.0-36.0); Mean Corpuscular Volume 85.4 fL (80.0-100.0); Monocytes # (auto) 0.5 10 ^3/uL (0-1.3); Monocytes % (auto) 7.2 % (0.0-12.0); Neutrophils # (auto) 4.9 10 ^3/uL (1.6-8.6); Nucleated Red Blood Cells % 0.1 %; Red Cell Distribution Width 14.1 % (11.8-14.3); White Blood Cell 7.1 10^3/uL (4.4-10.8)
[2021-02-19 08:22] LABS: Albumin 3.5 g/dL (3.4-5.0); BUN/Creatinine Ratio 31.7; Bilirubin, Total 0.4 mg/dL (0.2-1.0); CRP High Sensitivity 0.04 mg/dL (< 0.3); Total Protein 6.1 g/dL (6.4-8.2)
[2021-02-19 08:30] VITALS: BP 102/54
[2021-02-19] MEDS: levoFLOXacin 500MG 100 ML IV SCH (10:36)
[2021-02-19] MEDS: FUROSEMIDE 20 MG/2 ML VIAL IV SCH (10:37)
[2021-02-19] MEDS: methylPREDNISolone SOD SUCC 40 MG/ML VL IV SCH ×2 (10:37→21:26)
[2021-02-19] MEDS: PANTOPRAZOLE 40 MG TAB PO SCH (10:37)
[2021-02-19] MEDS: ENOXAPARIN SOD 40 MG/0.4 ML SYRINGE SC SCH (10:38)
[2021-02-19] MEDS: CHOLECALCIFEROL (VITD3) 2,000 UNIT CAP/TAB PO SCH (10:38)
[2021-02-19] MEDS: ASCORBIC ACID 1,000 MG TAB PO SCH (10:38)
[2021-02-19] MEDS: TOPIRAMATE 100 MG TAB PO SCH ×2 (10:38→21:26)
[2021-02-19 13:00] VITALS: BP 122/76
[2021-02-19] MEDS: REMDESIVIR 100mg 100 MG in SODIUM CHL 0.9% 230 ML IV SCH (15:42)
[2021-02-19] MEDS: LACTULOSE 20Gm/30ML SOLN PO PRN (15:42)
[2021-02-19] MEDS: OXYCODONE W/ ACETAMINOPHEN 5/325MG TABLET PO PRN (16:05)
[2021-02-19 16:30] VITALS: BP 110/77
[2021-02-19] MEDS: ACETYLCYSTEINE 10 %(100MG/ML) SOL 4ML NEB SCH (20:47)
[2021-02-19] MEDS: ALBUTEROL SULF 2.5 MG/0.5ML(0.5%) NEB SOLN NEB PRN (20:48)
[2021-02-19] MEDS: BUDESONIDE (INHALATION) 0.5 MG/2 ML NEB NEB SCH (20:48)
[2021-02-19] MEDS: ATORVASTATIN 20 MG TAB PO SCH (21:26)
[2021-02-19 21:34] VITALS: BP 114/71
[2021-02-20 05:31] VITALS: BP 104/69
[2021-02-20] MEDS: ALBUTEROL SULF 2.5 MG/0.5ML(0.5%) NEB SOLN NEB PRN (06:39)
[2021-02-20] MEDS: BUDESONIDE (INHALATION) 0.5 MG/2 ML NEB NEB SCH ×2 (06:39→20:09)
[2021-02-20] MEDS: ACETYLCYSTEINE 10 %(100MG/ML) SOL 4ML NEB SCH ×2 (06:39→20:09)
[2021-02-20 08:00] VITALS: BP 113/75
[2021-02-20] MEDS: FUROSEMIDE 20 MG/2 ML VIAL IV SCH (09:34)
[2021-02-20] MEDS: methylPREDNISolone SOD SUCC 40 MG/ML VL IV SCH (09:34)
[2021-02-20] MEDS: ENOXAPARIN SOD 40 MG/0.4 ML SYRINGE SC SCH (09:35)
[2021-02-20] MEDS: CHOLECALCIFEROL (VITD3) 2,000 UNIT CAP/TAB PO SCH (09:35)
[2021-02-20] MEDS: TOPIRAMATE 100 MG TAB PO SCH ×2 (09:35→21:55)
[2021-02-20] MEDS: PANTOPRAZOLE 40 MG TAB PO SCH (09:35)
[2021-02-20] MEDS: ASCORBIC ACID 1,000 MG TAB PO SCH (09:35)
[2021-02-20] MEDS: ONDANSETRON ODT 4 MG TAB PO PRN ×2 (09:38→22:30)
[2021-02-20] MEDS: levoFLOXacin 500MG 100 ML IV SCH (09:40)
[2021-02-20 12:17] VITALS: BP 102/76
[2021-02-20] MEDS ORDERED: guaiFENesin-DM 100/10mg/5ml SYR PO PRN (15:00)
[2021-02-20] MEDS: OXYCODONE W/ ACETAMINOPHEN 5/325MG TABLET PO PRN ×2 (16:26→22:29)
[2021-02-20 17:16] VITALS: BP 112/71
[2021-02-20] MEDS: IPRATROPIUM BROM 0.5 MG/2.5ML INH SOL NEB PRN ×2 (20:09→22:44)
[2021-02-20] MEDS: ALBUTEROL SULF 2.5 MG/0.5ML(0.5%) NEB SOLN NEB SCH ×2 (20:09→22:44)
[2021-02-20] MEDS: ATORVASTATIN 20 MG TAB PO SCH (21:56)
[2021-02-20 22:00] VITALS: BP 114/72
[2021-02-21] MEDS: ALBUTEROL SULF 2.5 MG/0.5ML(0.5%) NEB SOLN NEB SCH ×5 (02:05→14:00)
[2021-02-21 05:00] VITALS: BP 101/60
[2021-02-21] MEDS: BUDESONIDE (INHALATION) 0.5 MG/2 ML NEB NEB SCH (06:07)
[2021-02-21] MEDS: IPRATROPIUM BROM 0.5 MG/2.5ML INH SOL NEB PRN ×3 (06:07→13:50)
[2021-02-21] MEDS: ACETYLCYSTEINE 10 %(100MG/ML) SOL 4ML NEB SCH (06:07)
[2021-02-21] MEDS: ENOXAPARIN SOD 40 MG/0.4 ML SYRINGE SC SCH (08:13)
[2021-02-21] MEDS: levoFLOXacin 500MG 100 ML IV SCH (08:13)
[2021-02-21] MEDS: PANTOPRAZOLE 40 MG TAB PO SCH (08:14)
[2021-02-21] MEDS: CHOLECALCIFEROL (VITD3) 2,000 UNIT CAP/TAB PO SCH (08:14)
[2021-02-21] MEDS: ASCORBIC ACID 1,000 MG TAB PO SCH (08:14)
[2021-02-21] MEDS: TOPIRAMATE 100 MG TAB PO SCH (08:15)
[2021-02-21] MEDS: ONDANSETRON ODT 4 MG TAB PO PRN (08:15)
[2021-02-21 09:00] VITALS: BP 96/44
[2021-02-21] MEDS: LACTULOSE 20Gm/30ML SOLN PO PRN (09:24)
[2021-02-21] MEDS: OXYCODONE W/ ACETAMINOPHEN 5/325MG TABLET PO PRN (09:25)
[2021-02-21] MEDS ORDERED: predniSONE 20 MG TAB PO SCH (10:00)
[2021-02-21 13:00] VITALS: BP 107/73
[2021-02-21] MEDS ORDERED: CHOL1CAP47 PO (13:03)
[2021-02-21] MEDS ORDERED: PRED20TA2 PO (13:03)
[2021-02-21] MEDS ORDERED: DEXT1SYP9 PO (13:03)
[2021-02-21] MEDS ORDERED: ASCO10003 PO (13:03)
[2021-02-21] MEDS ORDERED: ZINC220T6 PO (13:04)
[2021-02-21 13:27] VITALS: BP 113/75
== END 2021-02-21 15:01 | disposition home or self-care (01) | DRG 177 ==
LOC: ER 15:09 → OVERFLOW 02-15 00:28 → TELE-WESTW 02-15 15:16
PROVIDERS: ADMIT Nurse Practitioner; ATTEND Internal Medicine
PROC: XW033E5 Introduction of Remdesivir Anti-infective into Peripheral Vein, Percutaneous Approach, New Technology Group 5 (ICD-10-PCS; principal; 2021-02-15)
DX: U07.1 COVID-19 (principal); J96.21 Acute and chronic respiratory failure with hypoxia; J12.82 Pneumonia due to coronavirus disease 2019; J44.1 Chronic obstructive pulmonary disease with (acute) exacerbation; J45.901 Unspecified asthma with (acute) exacerbation; D68.59 Other primary thrombophilia; J44.0 Chronic obstructive pulmonary disease with (acute) lower respiratory infection; F32.A Depression, unspecified; E78.5 Hyperlipidemia, unspecified; F17.200 Nicotine dependence, unspecified, uncomplicated; E03.9 Hypothyroidism, unspecified; F41.0 Panic disorder [episodic paroxysmal anxiety]; I50.9 Heart failure, unspecified; J20.8 Acute bronchitis due to other specified organisms; Z80.41 Family history of malignant neoplasm of ovary; Z82.49 Family history of ischemic heart disease and other diseases of the circulatory system; Z83.3 Family history of diabetes mellitus; Z90.710 Acquired absence of both cervix and uterus; Z90.49 Acquired absence of other specified parts of digestive tract; Z88.8 Allergy status to other drugs, medicaments and biological substances; Z88.6 Allergy status to analgesic agent; Z88.0 Allergy status to penicillin
CPT/HCPCS: 36415; 36600; 71045; 71275; 80053; 81001; 82728; 82805; 83036; 83615; 83735; 83880; 84439; 84443; 84484; 85025; 85379; 85610; 85730; 86141; 87070; 87205; 87426; 93005; 94640; 96365; 96367; 96375; G0378; J0696; J1100; J1956; J2405; Q0162